=== PATIENT | male | born 1955 | race Caucasian/White ===

== ENCOUNTER → 2017-04-02 | Outpatient (CLI) | payer OTHER ==
[~2017-04-02] MED LIST: FLOM5CAP PO; PERCOCET PO
[2017-04-02 10:43] LABS: ANION GAP 7 MEQ/L (8-16); BLOOD UREA NITROGEN 14 MG/DL (7-18); CALCIUM LEVEL 9.9 MG/DL (8.8-10.2); CARBON DIOXIDE LEVEL 28 MEQ/L (21-32); CHLORIDE LEVEL 102 MEQ/L (98-107); CREATININE FOR GFR 1.27 MG/DL (0.70-1.30); GLOMERULAR FILTRATION RATE > 60.0 (>49); GLUCOSE, FASTING 182 MG/DL (80-110); POTASSIUM SERUM 4.3 MEQ/L (3.5-5.1); SODIUM LEVEL 137 MEQ/L (136-145)
== END ==
LOC: M WUC 08:11
PROVIDERS: ATTEND Family Medicine
DX: E13.29 Other specified diabetes mellitus with other diabetic kidney complication (principal)

== ENCOUNTER → 2017-11-05 | Outpatient (CLI) | payer OTHER ==
[2017-11-05 09:12] LABS: ESTIMATED AVERAGE GLUCOSE 217 MG/DL (60-110); HEMOGLOBIN A1c 9.2 %
[2017-11-05 09:21] LABS: ANION GAP 9 MEQ/L (8-16); BLOOD UREA NITROGEN 16 MG/DL (7-18); CALCIUM LEVEL 9.4 MG/DL (8.8-10.2); CARBON DIOXIDE LEVEL 26 MEQ/L (21-32); CHLORIDE LEVEL 104 MEQ/L (98-107); CREATININE FOR GFR 1.34 MG/DL (0.70-1.30); GLOMERULAR FILTRATION RATE 57.3 (>49); GLUCOSE, FASTING 240 MG/DL (70-100); POTASSIUM SERUM 5.1 MEQ/L (3.5-5.1); SODIUM LEVEL 139 MEQ/L (136-145)
== END ==
LOC: M WUC 08:12
DX: E13.29 Other specified diabetes mellitus with other diabetic kidney complication (principal)

== ENCOUNTER → 2018-02-07 | Outpatient (CLI) | payer OTHER ==
[2018-02-07 12:48] LABS: ALBUMIN 3.9 GM/DL (3.2-5.2); ALBUMIN/GLOBULIN RATIO 1.08 (1.00-1.93); ALKALINE PHOSPHATASE 57 U/L (45-117); ALT/SGPT 57 U/L (12-78); ANION GAP 7 MEQ/L (8-16); AST/SGOT 23 U/L (7-37); BILIRUBIN,TOTAL 0.5 MG/DL (0.2-1.0); BLOOD UREA NITROGEN 17 MG/DL (7-18); CALCIUM LEVEL 9.5 MG/DL (8.8-10.2); CARBON DIOXIDE LEVEL 26 MEQ/L (21-32); CHLORIDE LEVEL 104 MEQ/L (98-107); CHOLESTEROL LEVEL 175 MG/DL (<200); CHOLESTEROL RISK RATIO 4.729 (<5); CREATININE FOR GFR 1.31 MG/DL (0.70-1.30); GLOMERULAR FILTRATION RATE 58.6 (>49); GLUCOSE, FASTING 136 MG/DL (70-100); HDL CHOLESTEROL 37 MG/DL (>40); LDL CHOLESTEROL 111.2 MG/DL (<100); NON-HDL-C 138 MG/DL; POTASSIUM SERUM 4.5 MEQ/L (3.5-5.1); PSA SCREENING 1.26 NG/ML (< 4.0); SODIUM LEVEL 137 MEQ/L (136-145); TOTAL PROTEIN 7.5 GM/DL (6.4-8.2); TRIGLYCERIDES LEVEL 134 MG/DL (<150)
[2018-02-07 12:53] LABS: CREATININE, URINE 19.7 MG/DL; MALB URINE SIEMENS 11.7 MG/L; MAU/CREAT RATIO 59.3 MCG/MG (0.0-30.0)
[2018-02-07 13:01] LABS: ESTIMATED AVERAGE GLUCOSE 160 MG/DL (60-110); HEMOGLOBIN A1c 7.2 %
== END ==
LOC: M WUC 08:06
DX: E13.29 Other specified diabetes mellitus with other diabetic kidney complication (principal); Z13.29 Encounter for screening for other suspected endocrine disorder; Z12.5 Encounter for screening for malignant neoplasm of prostate; E78.2 Mixed hyperlipidemia
CPT/HCPCS: 80053

== ENCOUNTER → 2018-06-12 | Outpatient (CLI) | payer OTHER ==
[2018-06-12 13:49] LABS: ALBUMIN 4.1 GM/DL (3.2-5.2); ALBUMIN/GLOBULIN RATIO 1.21 (1.00-1.93); ALKALINE PHOSPHATASE 58 U/L (45-117); ALT/SGPT 49 U/L (12-78); ANION GAP 8 MEQ/L (8-16); AST/SGOT 17 U/L (7-37); BILIRUBIN,TOTAL 0.6 MG/DL (0.2-1.0); BLOOD UREA NITROGEN 17 MG/DL (7-18); CALCIUM LEVEL 9.7 MG/DL (8.8-10.2); CARBON DIOXIDE LEVEL 29 MEQ/L (21-32); CHLORIDE LEVEL 101 MEQ/L (98-107); CREATININE FOR GFR 1.13 MG/DL (0.70-1.30); GLOMERULAR FILTRATION RATE > 60.0 (>49); GLUCOSE, FASTING 146 MG/DL (70-100); POTASSIUM SERUM 4.9 MEQ/L (3.5-5.1); SODIUM LEVEL 138 MEQ/L (136-145); TOTAL PROTEIN 7.5 GM/DL (6.4-8.2)
[2018-06-12 17:24] LABS: ESTIMATED AVERAGE GLUCOSE 148 MG/DL (60-110); HEMOGLOBIN A1c 6.8 %
== END ==
LOC: M WUC 08:04
DX: E13.29 Other specified diabetes mellitus with other diabetic kidney complication (principal); E78.2 Mixed hyperlipidemia

== ENCOUNTER → 2018-10-08 | Outpatient (CLI) | payer OTHER ==
[~2018-10-08] MED LIST changes: +FLOM0.4C39 PO; -FLOM5CAP PO
[2018-10-08 12:52] LABS: ALBUMIN 3.3 GM/DL (3.2-5.2); BILIRUBIN,TOTAL 0.7 MG/DL (0.2-1.0); CHOLESTEROL RISK RATIO 4.026 (<5); CREATININE FOR GFR 1.31 MG/DL (0.70-1.30); GLOMERULAR FILTRATION RATE 58.6 (>49); POTASSIUM SERUM 4.3 MEQ/L (3.5-5.1); TOTAL PROTEIN 7.2 GM/DL (6.4-8.2)
== END ==
LOC: M WUC 08:09
PROVIDERS: ATTEND Family Medicine
DX: E78.2 Mixed hyperlipidemia (principal); E13.29 Other specified diabetes mellitus with other diabetic kidney complication

== ENCOUNTER → 2018-12-23 | Outpatient (CLI) | payer MEDICARE, OTHER ==
[2018-12-23 13:20] LABS: ALT/SGPT 48 U/L (12-78); BILIRUBIN,TOTAL 0.5 MG/DL (0.2-1.0); BLOOD UREA NITROGEN 15 MG/DL (7-18); CALCIUM LEVEL 9.1 MG/DL (8.8-10.2); CARBON DIOXIDE LEVEL 27 MEQ/L (21-32); CHLORIDE LEVEL 101 MEQ/L (98-107); CHOLESTEROL LEVEL 181 MG/DL (<200); CHOLESTEROL RISK RATIO 4.309 (<5); CREATININE FOR GFR 1.21 MG/DL (0.70-1.30); GLOMERULAR FILTRATION RATE > 60.0 (>49); GLUCOSE, FASTING 173 MG/DL (70-100); HDL CHOLESTEROL 42 MG/DL (>40); LDL CHOLESTEROL 108 MG/DL (<100); NON-HDL-C 139 MG/DL; POTASSIUM SERUM 4.3 MEQ/L (3.5-5.1); SODIUM LEVEL 136 MEQ/L (136-145); TOTAL PROTEIN 7.5 GM/DL (6.4-8.2); TRIGLYCERIDES LEVEL 154 MG/DL (<150)
[2018-12-23 14:28] LABS: MAU/CREAT RATIO 81.6 MCG/MG (0.0-30.0)
[2018-12-23 14:43] LABS: HEMOGLOBIN A1c 7.6 %
== END ==
LOC: M WUC 08:28
PROVIDERS: ATTEND Family Medicine
DX: E13.29 Other specified diabetes mellitus with other diabetic kidney complication (principal); Z12.5 Encounter for screening for malignant neoplasm of prostate
CPT/HCPCS: 36415; 80053; 80061; 82043; 83036; G0103

== ENCOUNTER → 2019-06-30 | Outpatient (CLI) | payer OTHER, MEDICARE ==
[2019-06-30 09:44] LABS: HEMOGLOBIN A1c 7.8 %
[2019-06-30 09:54] LABS: CALCIUM LEVEL 9.5 MG/DL (8.8-10.2); CREATININE FOR GFR 1.41 MG/DL (0.70-1.30); GLOMERULAR FILTRATION RATE 53.7 (>49); POTASSIUM SERUM 4.6 MEQ/L (3.5-5.1)
== END ==
LOC: M WUC 08:09
PROVIDERS: ATTEND Family Medicine
DX: E13.29 Other specified diabetes mellitus with other diabetic kidney complication (principal)

== ENCOUNTER → 2019-07-21 | Outpatient (CLI) | payer MEDICARE, OTHER ==
--- NOTE | 2019-07-21 08:43 | REP ---
Clinical: Lung screening. History smoking. Comparison: None Technique: Axial low-dose noncontrast images from the thoracic inlet to the upper abdomen using lung screening technique. Findings: COPD/emphysematous changes are appreciated. There is a 1.9 cm area of opacity in the anterior right middle lobe with small adjacent satellite nodules measuring 1-2 mm as well as few scattered bilateral nonspecific and primarily non solid densities (right greater than left). Tracheobronchial tree is patent. No effusion. No pneumothorax. Impression: Lung-RADS category IV-B. PET/CT and short-term follow-up CT examination are suggested for further investigation. Electronically Signed by Brandon Hodgson MD 07/21/2019 08:34 A
== END ==
LOC: M RAD 07:44
PROVIDERS: ATTEND Family Medicine
DX: Z00.00 Encounter for general adult medical examination without abnormal findings (principal); F17.211 Nicotine dependence, cigarettes, in remission; R91.8 Other nonspecific abnormal finding of lung field

== ENCOUNTER → 2019-08-19 | Outpatient (CLI) | payer MEDICARE, OTHER ==
--- NOTE | 2019-08-20 10:19 | REP ---
PET/CT: HISTORY: Diagnosing lung carcinoma. 19 mm nodular density right middle lobe. COMPARISONS: Comparison CT study of the chest is from July 21, 2019. TECHNIQUE: 55 minutes following the intravenous injection of a 8.52 mCi dose of F-18 FDG, three-dimensional PET scintigraphy is acquired from the skull base to the proximal thighs. Triplanar noncontrast CT scanning is acquired through the same anatomic range for attenuation correction, and image registration with scan parameters optimized to minimize radiation exposure to the patient. PET scintigraphy and CT datasets were fused and displayed on a workstation with multiplanar and projection display capability. PET/CT FINDINGS: The previously noted nodular opacity in the anterior aspect of the right middle lobe has improved morphologically. It has a linear shaped and is smaller and thinner suggesting postinflammatory atelectasis or fibrosis. It is not hypermetabolic. There is no discernible FDP accumulation. Maximum standard uptake value is 0.5. There is no other abnormal hypermetabolic uptake within the thorax. No other abnormal opacity seen in the lung parenchyma. The head and neck soft tissues are unremarkable. In the abdomen and pelvis, there is no abnormal hypermetabolic uptake. Multifocal mild uptake in the subcutaneous fat layer of the anterior abdominal wall is seen consistent with recent subcutaneous injections. This should be correlated with clinical history. Maximum standard uptake value within these is 4.85. IMPRESSION: There is no abnormal hypermetabolic uptake within the chest. The nodular opacity seen on screening CT study is improved in appearance morphologically consistent with a benign inflammatory changes. Repeat screening CT study of the chest suggested 1 year. There are minimally hypermetabolic foci in the subcutaneous fat layer of the anterior abdominal wall, question recent subcutaneous injections. Electronically Signed by Tyrone Olmos MD 08/20/2019 11:17 A
== END ==
LOC: M PLARAD 14:35
PROVIDERS: ATTEND Family Medicine
DX: R91.8 Other nonspecific abnormal finding of lung field (principal)
CPT/HCPCS: 78815; A9552

== ENCOUNTER → 2019-10-04 | Outpatient (CLI) | payer MEDICARE, OTHER ==
[~2019-10-04] MED LIST changes: +ASPI81TA85 PO; +CINN500C15 PO; +CYAN100050 PO; +D 202000 PO; +EZET10TA21 PO; +GNP250TA9 PO; +JARD1TAB PO; +LOSA25TA14 PO; +METF-877 PO; +METF10004 PO
[2019-10-04 11:31] LABS: CALCIUM LEVEL 8.9 MG/DL (8.8-10.2); CREATININE FOR GFR 1.38 MG/DL (0.70-1.30); GLOMERULAR FILTRATION RATE 55.1 (>49); POTASSIUM SERUM 4.6 MEQ/L (3.5-5.1)
== END ==
LOC: M WUC 08:19
PROVIDERS: ATTEND Family Medicine
DX: E13.29 Other specified diabetes mellitus with other diabetic kidney complication (principal)

== ENCOUNTER 2019-10-17 10:17 | Day surgery (SDC) | payer MEDICARE, OTHER ==
[~2019-10-17] VITALS: Ht 190.5 cm; Wt 89.7 kg
[~2019-10-17 10:17] MED LIST changes: +NS 1,000 ML IV ONE
[2019-10-17] MEDS ORDERED: LIDOCAINE 2% INJ 100 MG/5 ML SDV (FOR ANES.) As Ordered ONE (11:58)
[2019-10-17] MEDS ORDERED: propofoL 500 MG/50 ML VIAL As Ordered ONE ×2 (11:58→12:13)
--- NOTE | 2019-10-17 12:40 | ROOR ---
Patient Name: Mitch Peck Procedure Date: 10/17/2019 11:52 AM Date of : 1955 Age: 63 Room: [facility] Gender: Male Note Status: Finalized Procedure: Colonoscopy Indications: High risk colon cancer surveillance: Personal history of colonic polyps Providers: London Gerard MD Referring MD: Alvaro Evans MD Requesting Provider: Medicines: Monitored Anesthesia Care Complications: No immediate complications. Procedure: Pre-Anesthesia Assessment: - Prior to the procedure, a History and Physical was performed, and patient medications and allergies were reviewed. The patient is competent. The risks and benefits of the procedure and the sedation options and risks were discussed with the patient. All questions were answered and informed consent was obtained. Patient identification and proposed procedure were verified by the physician, the nurse and the anesthesiologist in the procedure room. Mental Status Examination: alert and oriented. Airway Examination: normal oropharyngeal airway and neck mobility. Respiratory Examination: clear to auscultation. CV Examination: normal. Prophylactic Antibiotics: The patient does not require prophylactic antibiotics. Prior Anticoagulants: The patient has taken no previous anticoagulant or antiplatelet agents. ASA Grade Assessment: II - A patient with mild systemic disease. After reviewing the risks and benefits, the patient was deemed in satisfactory condition to undergo the procedure. The anesthesia plan was to use monitored anesthesia care (MAC). Immediately prior to administration of medications, the patient was re-assessed for adequacy to receive sedatives. The heart rate, respiratory rate, oxygen saturations, blood pressure, adequacy of pulmonary ventilation, and response to care were monitored throughout the procedure. The physical status of the patient was re-assessed after the procedure. The Colonoscope was introduced through the anus and advanced to the cecum, identified by appendiceal orifice and ileocecal valve. The colonoscopy was performed without difficulty. The patient tolerated the procedure well. The quality of the bowel preparation was good. The terminal ileum, ileocecal valve, appendiceal orifice, and rectum were photographed. Scope insertion time was 3 minutes. Scope withdrawal time was 12 minutes. The total duration of the procedure was 15 minutes. Findings: The perianal and digital rectal examinations were normal. The terminal ileum appeared normal. Two sessile polyps were found in the cecum. The polyps were 8 to 12 mm in size. These polyps were removed with a cold snare. Resection and retrieval were complete. Verification of patient identification for the specimen was done by the physician and nurse using the patient's name, date and medical record number. Estimated blood loss was minimal. For hemostasis, one hemostatic clip was successfully placed. There was no bleeding at the end of the procedure. A 15 mm polyp was found in the transverse colon. The polyp was flat and sessile. The polyp was removed with a hot snare. Resection and retrieval were complete. To close a defect after polypectomy, one hemostatic clip was successfully placed. There was no bleeding at the end of the procedure. Multiple small and large-mouthed diverticula were found from sigmoid to transverse colon. There was no evidence of diverticular bleeding. Non-bleeding external and internal hemorrhoids were found during retroflexion. The hemorrhoids were medium-sized. Impression: - The examined portion of the ileum was normal. - Two 8 to 12 mm polyps in the cecum, removed with a cold snare. Resected and retrieved. Clip was placed. - One 15 mm polyp in the transverse colon, removed with a hot snare. Resected and retrieved. Clip was placed. - Moderate diverticulosis from sigmoid to transverse colon. There was no evidence of diverticular bleeding. - Non-bleeding external and internal hemorrhoids. Recommendation: - Patient has a contact number available for emergencies. The signs and symptoms of potential delayed complications were discussed with the patient. Return to normal activities tomorrow. Written discharge instructions were provided to the patient. - High fiber diet. - Continue present medications. - Miralax 1 capful (17 grams) in 8 ounces of water PO daily for 3 days. - Await pathology results. - Repeat colonoscopy in 3 years for surveillance based on pathology results. - Telephone GI clinic for pathology results in 2 weeks. - Return to primary care physician. London Gerard MD London Gerard MD 10/17/2019 12:40:01 PM Electronically signed by London Gerard MD Number of Addenda: 0 Note Initiated On: 10/17/2019 11:52 AM Estimated Blood Loss: Estimated blood loss was minimal.
[2019-10-17 12:55] VITALS: BP 108/81
== END 2019-10-17 13:02 | disposition home or self-care (01) ==
LOC: M OPP 10:17
PROVIDERS: ATTEND Internal Medicine Gastroenterology
DX: Z12.11 Encounter for screening for malignant neoplasm of colon (principal); Z86.010 Personal history of colon polyps; Z80.0 Family history of malignant neoplasm of digestive organs; K64.8 Other hemorrhoids; K63.5 Polyp of colon; K57.30 Diverticulosis of large intestine without perforation or abscess without bleeding; Z79.82 Long term (current) use of aspirin; Z79.84 Long term (current) use of oral hypoglycemic drugs; Z79.899 Other long term (current) drug therapy; Z88.8 Allergy status to other drugs, medicaments and biological substances

== ENCOUNTER → 2020-04-02 | Outpatient (CLI) | payer MEDICARE, OTHER ==
[~2020-04-02] MED LIST changes: -ASPI81TA85 PO; +ASPI81TA86 PO; -NS 1,000 ML IV ONE
[2020-04-02 10:38] LABS: ALBUMIN 4.1 GM/DL (3.2-5.2); BILIRUBIN,TOTAL 0.6 MG/DL (0.2-1.0); CALCIUM LEVEL 9.4 MG/DL (8.8-10.2); CHOLESTEROL RISK RATIO 5.119 (<5); CREATININE FOR GFR 1.28 MG/DL (0.70-1.30); GLOMERULAR FILTRATION RATE 59.9 (>49); POTASSIUM SERUM 4.3 MEQ/L (3.5-5.1); TOTAL PROTEIN 7.8 GM/DL (6.4-8.2)
[2020-04-02 10:41] LABS: CREATININE, URINE 71.7 MG/DL; MALB URINE SIEMENS 56.3 MG/L; MAU/CREAT RATIO 78.5 MCG/MG (0.0-30.0)
== END ==
LOC: M WUC 08:03
PROVIDERS: ATTEND Family Medicine
DX: E78.2 Mixed hyperlipidemia (principal); E13.29 Other specified diabetes mellitus with other diabetic kidney complication; Z12.5 Encounter for screening for malignant neoplasm of prostate
CPT/HCPCS: 36415; 80053; 80061; 82043; 83036; G0103

== ENCOUNTER → 2020-06-26 | Outpatient (CLI) | payer MEDICARE, OTHER ==
[2020-06-26 12:55] LABS: BLOOD UREA NITROGEN 19 MG/DL (7-18); CALCIUM LEVEL 9.6 MG/DL (8.8-10.2); CARBON DIOXIDE LEVEL 29 MEQ/L (21-32); CHLORIDE LEVEL 102 MEQ/L (98-107); CREATININE FOR GFR 1.19 MG/DL (0.70-1.30); GLOMERULAR FILTRATION RATE > 60.0 (>49); GLUCOSE, FASTING 171 MG/DL (70-100); POTASSIUM SERUM 4.3 MEQ/L (3.5-5.1); SODIUM LEVEL 136 MEQ/L (136-145)
[2020-06-26 13:09] LABS: HEMOGLOBIN A1c 7.6 %
== END ==
LOC: M WUC 08:06
PROVIDERS: ATTEND Family Medicine
DX: E13.9 Other specified diabetes mellitus without complications (principal)

== ENCOUNTER → 2020-06-29 | Outpatient (CLI) | payer MEDICARE, OTHER ==
--- NOTE | 2020-07-05 14:34 | REP ---
CT CHEST WITHOUT CONTRAST HISTORY: Abnormal CT lung screening. COMPARISON: CT chest July 21, 2019. CT FINDINGS: The previously noted multifocal tree-in-bud inflammatory pulmonary opacities in the right middle lobe, right upper lobe, and left upper lobe have largely resolved. There is some minimal parenchymal scarring in the right middle lobe anteriorly and medially with scattered areas of mild peribronchial thickening and inspissated endobronchial secretions consistent with bronchitis. There is a 5 mm noncalcified opacity which is most likely endobronchial secretions in the right upper lobe on page 32. Question bronchiectasis. There is a perifissural nodule in the left upper lobe on page 56 of 116 in series 201 of todays study. This is unchanged. No pulmonary mass or new infiltrate is appreciated. There are scattered stable mediastinal lymph nodes, none pathologically enlarged. Vascular calcification is seen. Normal adrenal glands. The visualized upper abdominal structures are unremarkable. No bony destructive lesion is appreciated. Posttraumatic changes are noted in the right clavicle which appear to be old. IMPRESSION: Bronchitis/bronchiectasis changes with a postinflammatory fibrosis in the right middle lobe and right upper lobe. 5 mm right upper lobe nodule versus inspissated endobronchial secretions. Lung-RADS category 2 findings. Repeat screening study recommended in one year. MTDD
== END ==
LOC: M RAD 07:58
PROVIDERS: ATTEND Family Medicine
DX: R91.8 Other nonspecific abnormal finding of lung field (principal); J84.10 Pulmonary fibrosis, unspecified

== ENCOUNTER → 2020-10-28 | Outpatient (CLI) | payer MEDICARE, OTHER ==
[2020-10-28 10:44] LABS: BLOOD UREA NITROGEN 15 MG/DL (7-18); CALCIUM LEVEL 9.8 MG/DL (8.8-10.2); CARBON DIOXIDE LEVEL 25 MEQ/L (21-32); CHLORIDE LEVEL 103 MEQ/L (98-107); CREATININE FOR GFR 1.16 MG/DL (0.70-1.30); GLOMERULAR FILTRATION RATE > 60.0 (>49); GLUCOSE, FASTING 167 MG/DL (70-100); POTASSIUM SERUM 4.1 MEQ/L (3.5-5.1); SODIUM LEVEL 138 MEQ/L (136-145)
== END ==
LOC: M WUC 08:08
PROVIDERS: ATTEND Family Medicine
DX: E13.29 Other specified diabetes mellitus with other diabetic kidney complication (principal)

== ENCOUNTER → 2021-03-04 | Outpatient (CLI) | payer MEDICARE, OTHER ==
[2021-03-04 10:09] LABS: BLOOD UREA NITROGEN 13 MG/DL (7-18); CALCIUM LEVEL 9.1 MG/DL (8.8-10.2); CARBON DIOXIDE LEVEL 28 MEQ/L (21-32); CHLORIDE LEVEL 105 MEQ/L (98-107); CREATININE FOR GFR 1.17 MG/DL (0.70-1.30); GLOMERULAR FILTRATION RATE > 60.0 (>49); GLUCOSE, FASTING 132 MG/DL (70-100); POTASSIUM SERUM 4.2 MEQ/L (3.5-5.1); SODIUM LEVEL 138 MEQ/L (136-145)
[2021-03-04 11:18] LABS: HEMOGLOBIN A1c 6.9 %
== END ==
LOC: M WUC 08:10
PROVIDERS: ATTEND Family Medicine
DX: E13.29 Other specified diabetes mellitus with other diabetic kidney complication (principal)

== ENCOUNTER → 2021-08-30 | Outpatient (REF) | payer MEDICARE, OTHER ==
[2021-08-30 12:58] LABS: HEMOGLOBIN A1c 8.5 %
[2021-08-30 13:12] LABS: CREATININE, URINE 76.4 MG/DL; MALB URINE SIEMENS 64.4 MG/L; MAU/CREAT RATIO 84.2 MCG/MG (0.0-30.0)
[2021-08-30 13:15] LABS: ALBUMIN 3.7 GM/DL (3.2-5.2); ALT/SGPT 27 U/L (12-78); BLOOD UREA NITROGEN 20 MG/DL (7-18); CALCIUM LEVEL 9.4 MG/DL (8.8-10.2); CARBON DIOXIDE LEVEL 28 MEQ/L (21-32); CHLORIDE LEVEL 105 MEQ/L (98-107); CHOLESTEROL LEVEL 171 MG/DL (<200); CHOLESTEROL RISK RATIO 4.275 (<5); CREATININE FOR GFR 1.26 MG/DL (0.70-1.30); GLOMERULAR FILTRATION RATE > 60.0 (>49); GLUCOSE, FASTING 151 MG/DL (70-100); HDL CHOLESTEROL 40 MG/DL (>40); LDL CHOLESTEROL 107 MG/DL (<100); NON-HDL-C 131 MG/DL; POTASSIUM SERUM 4.5 MEQ/L (3.5-5.1); SODIUM LEVEL 138 MEQ/L (136-145); TOTAL PROTEIN 7.3 GM/DL (6.4-8.2); TRIGLYCERIDES LEVEL 119 MG/DL (<150)
== END ==
LOC: M SFHCADAM 08:05
PROVIDERS: ATTEND Family Medicine
DX: E13.29 Other specified diabetes mellitus with other diabetic kidney complication (principal); E78.2 Mixed hyperlipidemia; Z12.5 Encounter for screening for malignant neoplasm of prostate
CPT/HCPCS: 80053; 80061; 82043; 83036; G0103

== ENCOUNTER → 2021-11-03 | Outpatient (REF) | payer MEDICARE, OTHER ==
[~2021-11-03] MED LIST changes: +LOSA25TA13 PO; -LOSA25TA14 PO
[2021-11-03 11:29] LABS: CALCIUM LEVEL 9.8 MG/DL (8.8-10.2); CREATININE FOR GFR 1.38 MG/DL (0.70-1.30); GLOMERULAR FILTRATION RATE 54.7 (>49); POTASSIUM SERUM 4.7 MEQ/L (3.5-5.1)
[2021-11-03 12:57] LABS: HEMOGLOBIN A1c 9.2 %
== END ==
LOC: M SFHCADAM 09:01
PROVIDERS: ATTEND Family Medicine
DX: E13.29 Other specified diabetes mellitus with other diabetic kidney complication (principal)

== ENCOUNTER → 2021-11-09 | Outpatient (CLI) | payer MEDICARE, OTHER | LOC: M RAD 09:16 | PROVIDERS: ATTEND Family Medicine | DX: Z12.2 Encounter for screening for malignant neoplasm of respiratory organs (principal); F17.211 Nicotine dependence, cigarettes, in remission; R91.8 Other nonspecific abnormal finding of lung field ==

== ENCOUNTER → 2022-05-19 | Outpatient (CLI) | payer MEDICARE, OTHER ==
[2022-05-19 13:09] LABS: HEMOGLOBIN A1c 8.3 %
[2022-05-19 13:37] LABS: ALBUMIN 3.9 GM/DL (3.2-5.2); BILIRUBIN,TOTAL 0.7 MG/DL (0.2-1.0); CALCIUM LEVEL 9.2 MG/DL (8.8-10.2); CHOLESTEROL RISK RATIO 4.441 (<5); CREATININE FOR GFR 1.33 MG/DL (0.70-1.30); GLOMERULAR FILTRATION RATE 56.9 (>49); POTASSIUM SERUM 4.3 MEQ/L (3.5-5.1); TOTAL PROTEIN 7.4 GM/DL (6.4-8.2)
== END ==
LOC: M ADAMS 08:37
PROVIDERS: ATTEND Family Medicine
DX: E13.29 Other specified diabetes mellitus with other diabetic kidney complication (principal); E78.2 Mixed hyperlipidemia

== ENCOUNTER → 2022-11-08 | Outpatient (CLI) | payer MEDICARE, OTHER ==
[2022-11-08 10:42] LABS: HEMATOCRIT 52.4 % (42.0-52.0); HEMOGLOBIN 17.5 g/dl (13.5-17.5); MEAN CORPUSCULAR HEMOGLOBIN 31.5 pg (27.0-33.0); MEAN CORPUSCULAR HGB CONC 33.4 g/dl (32.0-36.5); MEAN CORPUSCULAR VOLUME 94.2 fl (80.0-96.0); PLATELET COUNT, AUTOMATED 293 10^3/uL (150-450); RED BLOOD COUNT 5.56 10^6/uL (4.30-6.10); WHITE BLOOD COUNT 9.3 10^3/uL (4.0-10.0)
[2022-11-08 11:22] LABS: CREATININE, URINE 65.6 MG/DL
[2022-11-08 11:23] LABS: MAU/CREAT RATIO 57.9 MCG/MG (0.0-30.0)
[2022-11-08 12:28] LABS: HEMOGLOBIN A1c 9.1 % (4.0-6.0)
[2022-11-08 14:49] LABS: ALBUMIN 3.9 G/DL (3.2-5.2); BILIRUBIN,TOTAL 0.7 MG/DL (0.3-1.2); CALCIUM LEVEL 9.6 MG/DL (8.3-10.6); CHOLESTEROL RISK RATIO 4.36 (<5); CREATININE FOR GFR 1.31 MG/DL (0.70-1.30); GLOMERULAR FILTRATION RATE 57.9 (>49); POTASSIUM SERUM 4.5 MMOL/L (3.5-5.1)
[2022-11-08 22:09] LABS: LDL CHOLESTEROL 127.6 MG/DL (<100); TOTAL PROTEIN 7.3 G/DL (5.7-8.2)
== END ==
LOC: M WUC 08:03
PROVIDERS: ATTEND Family Medicine
DX: R91.8 Other nonspecific abnormal finding of lung field (principal); E78.2 Mixed hyperlipidemia; E13.29 Other specified diabetes mellitus with other diabetic kidney complication; Z12.5 Encounter for screening for malignant neoplasm of prostate
CPT/HCPCS: 36415; 80053; 80061; 82043; 83036; 85027; G0103

== ENCOUNTER 2022-11-15 17:56 | Inpatient (IN) | payer MEDICARE, OTHER ==
[~2022-11-15] VITALS: Ht 190.5 cm; Wt 93.0 kg
[2022-11-15] MEDS ORDERED: TRUL0.5I (18:17)
[2022-11-15] MEDS ORDERED: methylPREDNISolone 125MG 2ML VIAL IV ONE (19:55)
[2022-11-15] MEDS ORDERED: LIDOCAINE 5% (LIDODERM) PATCH TD ONE (21:35)
[2022-11-15 21:37] LABS: BASO # 0.1 10^3/uL (0.0-0.2); BASO % 0.5 % (0.0-1.0); EOS # 0.3 10^3/uL (0.0-0.5); EOS % 2.2 % (0.0-3.0); HEMATOCRIT 52.2 % (42.0-52.0); HEMOGLOBIN 17.5 g/dl (13.5-17.5); LYMPH # 3.5 10^3/uL (1.5-5.0); LYMPH % 26.3 % (24.0-44.0); MEAN CORPUSCULAR HEMOGLOBIN 31.2 pg (27.0-33.0); MEAN CORPUSCULAR HGB CONC 33.5 g/dl (32.0-36.5); MONO # 1.1 10^3/uL (0.0-0.8); NEUTROPHILS # 8.3 10^3/uL (1.5-8.5); NEUTROPHILS % 62.8 % (36.0-66.0); PLATELET COUNT, AUTOMATED 289 10^3/uL (150-450); RED BLOOD COUNT 5.61 10^6/uL (4.30-6.10); WHITE BLOOD COUNT 13.2 10^3/uL (4.0-10.0)
[2022-11-15 21:43] LABS: ERYTHROCYTE SEDIMENTATION RATE 34 mm/hr (0-20)
[2022-11-15 21:53] LABS: BLOOD UREA NITROGEN 21 MG/DL (9-23); CALCIUM LEVEL 9.8 MG/DL (8.3-10.6); CARBON DIOXIDE LEVEL 28 MMOL/L (20-31); CHLORIDE LEVEL 106 MMOL/L (98-107); CREATININE FOR GFR 1.16 MG/DL (0.70-1.30); GLOMERULAR FILTRATION RATE > 60.0 (>49); GLUCOSE, FASTING 159 MG/DL (74-106); POTASSIUM SERUM 4.5 MMOL/L (3.5-5.1); SODIUM LEVEL 140 MMOL/L (136-145)
[2022-11-15 22:28] LABS: C REACTIVE PROTEIN QUANTITATIV < 0.40 MG/DL (<1.0)
[2022-11-15] MEDS ORDERED: ONDANSETRON 4MG 2ML VIAL IV ONE (22:40)
[2022-11-15] MEDS ORDERED: MORPHINE 4 MG/ML 1ML VIAL IV ONE (22:40)
[2022-11-15] MEDS ORDERED: DEXTROSE 50% 50ML SYRINGE IV PRN (22:55)
[2022-11-15] MEDS ORDERED: MORPHINE 2 MG/ML 1ML VIAL IV PRN (22:55)
[2022-11-15] MEDS ORDERED: NS 1,000 ML IV ONE (22:55)
[2022-11-15] MEDS ORDERED: GLUCAGON INJ 1MG VIAL SC PRN (22:55)
[2022-11-15] MEDS ORDERED: ACETAMINOPHEN TAB 650MG DOSE (2X325MG) PO PRN (22:55)
[2022-11-15] MEDS ORDERED: GLUCOSE 4GM CHEW TABLET PO PRN (22:55)
[2022-11-15] MEDS ORDERED: ONDANSETRON 4MG 2ML VIAL IV PRN (22:55)
[2022-11-15 23:37] LABS: RSV AMPLIFICATION NEGATIVE (NEGATIVE)
[2022-11-16] MEDS: INSULIN LISPRO (NovoLOG) PER UNIT SC SCH ×3 (00:14→12:00)
[2022-11-16] MEDS ORDERED: VITA100093 PO (00:23)
[2022-11-16] MEDS ORDERED: DULA4.5P SC (00:23)
[2022-11-16] MEDS ORDERED: ASPI-161 PO (00:23)
[2022-11-16] MEDS ORDERED: JARD1TAB3 PO (00:23)
[2022-11-16] MEDS ORDERED: HOME MED LIST COMPLETE! XX SCH (00:25)
[2022-11-16] MEDS ORDERED: carisoprodoL 350 MG TAB PO PRN (00:45)
[2022-11-16 06:51] LABS: HEMATOCRIT 50.1 % (42.0-52.0); HEMOGLOBIN 16.9 g/dl (13.5-17.5); MEAN CORPUSCULAR HEMOGLOBIN 31.5 pg (27.0-33.0); MEAN CORPUSCULAR HGB CONC 33.7 g/dl (32.0-36.5); MEAN CORPUSCULAR VOLUME 93.5 fl (80.0-96.0); PLATELET COUNT, AUTOMATED 259 10^3/uL (150-450); RED BLOOD COUNT 5.36 10^6/uL (4.30-6.10); WHITE BLOOD COUNT 11.1 10^3/uL (4.0-10.0)
[2022-11-16 07:17] LABS: INR 0.93; PROTHROMBIN TIME 12.7 SECONDS (12.5-14.5)
[2022-11-16 07:18] LABS: PARTIAL THROMBOPLASTIN TIME 25.7 SECONDS (24.8-34.2)
[2022-11-16 07:27] LABS: HEMOGLOBIN A1c 9.1 % (4.0-6.0)
[2022-11-16 07:46] LABS: ALBUMIN 3.7 G/DL (3.2-5.2); ALKALINE PHOSPHATASE 71 U/L (46-116); ALT/SGPT 33 U/L (7.0-40); AST/SGOT 13 U/L (<34); BILIRUBIN,TOTAL 0.8 MG/DL (0.3-1.2); BLOOD UREA NITROGEN 24 MG/DL (9-23); CALCIUM LEVEL 9.6 MG/DL (8.3-10.6); CARBON DIOXIDE LEVEL 22 MMOL/L (20-31); CHLORIDE LEVEL 107 MMOL/L (98-107); CREATININE FOR GFR 1.11 MG/DL (0.70-1.30); GLOMERULAR FILTRATION RATE > 60.0 (>49); GLUCOSE, FASTING 214 MG/DL (74-106); MAGNESIUM LEVEL 2.1 MG/DL (1.8-2.4); POTASSIUM SERUM 4.8 MMOL/L (3.5-5.1); SODIUM LEVEL 139 MMOL/L (136-145); TOTAL PROTEIN 6.9 G/DL (5.7-8.2)
[2022-11-16] MEDS ORDERED: KETOROLAC 30 MG/ML 1ML VIAL IV ONE (08:55)
[2022-11-16] MEDS ORDERED: EZETIMIBE 10MG TABLET (ZETIA) PO SCH (09:00)
[2022-11-16] MEDS ORDERED: LIDOCAINE 5% OINT 30GM TUBE TOP SCH (09:00)
[2022-11-16] MEDS ORDERED: LOSARTAN 25 MG TAB PO SCH (09:00)
[2022-11-16] MEDS ORDERED: CYANOCOBALAMIN 500 MCG TAB PO SCH (09:00)
[2022-11-16] MEDS ORDERED: ASPIRIN 81MG ENTERIC TABLET PO SCH (09:00)
[2022-11-16] MEDS ORDERED: VITAMIN D 1,000 INTERNATIONAL UNITS TABLET PO SCH (09:00)
[2022-11-16] MEDS ORDERED: ACETAMINOPHEN 500 MG TAB PO SCH (09:00)
[2022-11-16] MEDS ORDERED: PROHANCE 279.3MG/ML 15ML VIAL As Ordered ONE (10:26)
[2022-11-16] MEDS ORDERED: PROHANCE 279.3MG/ML 5ML VIAL As Ordered ONE (10:26)
[2022-11-16 11:29] VITALS: BP 118/59
[2022-11-16] MEDS ORDERED: methylPREDNISolone 40MG 1ML VIAL IV ONE (13:20)
[2022-11-16] MEDS ORDERED: MEDR4PAK PO (13:25)
[2022-11-16] MEDS ORDERED: ACET500P3 PO (13:25)
[2022-11-16] MEDS ORDERED: IBUP-1022 PO (13:25)
[2022-11-16] MEDS ORDERED: OMEP40CA4 PO (13:25)
[2022-11-16] MEDS ORDERED: NAPROXEN 250 MG TAB PO SCH (14:00)
== END 2022-11-16 14:25 | disposition home or self-care (01) | DRG 558 ==
LOC: M ED 17:56 → M ED INP 22:51
PROVIDERS: ADMIT Internal Medicine; ATTEND Internal Medicine Nephrology
DX: M65.9 Synovitis and tenosynovitis, unspecified (principal); E11.618 Type 2 diabetes mellitus with other diabetic arthropathy; M75.32 Calcific tendinitis of left shoulder; I10 Essential (primary) hypertension; M75.00 Adhesive capsulitis of unspecified shoulder; E78.5 Hyperlipidemia, unspecified; Z88.8 Allergy status to other drugs, medicaments and biological substances; Z79.899 Other long term (current) drug therapy; Z79.82 Long term (current) use of aspirin; Z87.891 Personal history of nicotine dependence; S40.012A Contusion of left shoulder, initial encounter; W18.30XA Fall on same level, unspecified, initial encounter; Y92.009 Unspecified place in unspecified non-institutional (private) residence as the place of occurrence of the external cause

== ENCOUNTER → 2022-11-17 | Outpatient (CLI) | payer MEDICARE, OTHER ==
[~2022-11-17] MED LIST changes: +ACET500P3 PO; +ASPI-161 PO; +DULA4.5P SC; +IBUP-1022 PO; +ISOVUE-370 76% 100ML VIAL As Ordered ONE; +JARD1TAB3 PO; +MEDR4PAK PO; +OMEP40CA4 PO; +TRUL0.5I; +VITA100093 PO
== END ==
LOC: M RAD 08:39
PROVIDERS: ATTEND Family Medicine
DX: R91.8 Other nonspecific abnormal finding of lung field (principal)
CPT/HCPCS: 71260; Q9967

== ENCOUNTER → 2023-02-05 | Outpatient (REF) | payer MEDICARE, OTHER ==
[~2023-02-05] MED LIST changes: -ISOVUE-370 76% 100ML VIAL As Ordered ONE
[2023-02-05 13:46] LABS: HEMOGLOBIN A1c 8.5 % (4.0-6.0)
[2023-02-05 14:01] LABS: CALCIUM LEVEL 9.7 MG/DL (8.3-10.6); CREATININE FOR GFR 1.28 MG/DL (0.70-1.30); GLOMERULAR FILTRATION RATE 59.3 (>49); POTASSIUM SERUM 5.4 MMOL/L (3.5-5.1)
== END ==
LOC: M SFHCADAM 07:33
PROVIDERS: ATTEND Family Medicine
DX: E11.65 Type 2 diabetes mellitus with hyperglycemia (principal)

== ENCOUNTER → 2023-05-01 | Outpatient (REF) | payer MEDICARE, OTHER ==
[~2023-05-01] MED LIST changes: +CYAN-1 PO; -CYAN100050 PO
[2023-05-01 14:22] LABS: BLOOD UREA NITROGEN 17 MG/DL (9-23); CALCIUM LEVEL 9.8 MG/DL (8.3-10.6); CARBON DIOXIDE LEVEL 26 MMOL/L (20-31); CHLORIDE LEVEL 104 MMOL/L (98-107); CREATININE FOR GFR 1.17 MG/DL (0.70-1.30); GLOMERULAR FILTRATION RATE > 60.0 (>49); GLUCOSE, FASTING 161 MG/DL (74-106); POTASSIUM SERUM 4.6 MMOL/L (3.5-5.1); SODIUM LEVEL 138 MMOL/L (136-145)
[2023-05-01 14:33] LABS: HEMOGLOBIN A1c 8.2 % (4.0-6.0)
== END ==
LOC: M SFHCADAM 08:31
PROVIDERS: ATTEND Family Medicine
DX: E11.65 Type 2 diabetes mellitus with hyperglycemia (principal)

== ENCOUNTER → 2023-12-13 | Outpatient (CLI) | payer MEDICARE, OTHER ==
[~2023-12-13] MED LIST changes: -ASPI-161 PO; +ASPI-615 PO
== END ==
LOC: M RAD 07:17
PROVIDERS: ATTEND Family Medicine
DX: Z87.891 Personal history of nicotine dependence (principal)

== ENCOUNTER → 2023-12-24 | Outpatient (CLI) | payer MEDICARE, OTHER ==
[2023-12-24 12:21] LABS: HEMATOCRIT 54.2 % (42.0-52.0); HEMOGLOBIN 17.7 g/dl (13.5-17.5); MEAN CORPUSCULAR HGB CONC 32.7 g/dl (32.0-36.5); MEAN CORPUSCULAR VOLUME 94.9 fl (80.0-96.0); PLATELET COUNT, AUTOMATED 276 10^3/uL (150-450); RED BLOOD COUNT 5.71 10^6/uL (4.30-6.10); WHITE BLOOD COUNT 10.5 10^3/uL (4.0-10.0)
[2023-12-24 12:33] LABS: ALBUMIN 4.2 G/DL (3.2-5.2); BILIRUBIN,TOTAL 0.7 MG/DL (0.3-1.2); CALCIUM LEVEL 9.8 MG/DL (8.3-10.6); CHOLESTEROL RISK RATIO 4.14 (<5); CREATININE FOR GFR 1.31 MG/DL (0.70-1.30); FREE T4 1.24 NG/DL (0.89-1.76); GLOMERULAR FILTRATION RATE 57.8 (>49); HDL CHOLESTEROL 47.1 MG/DL (>40); LDL CHOLESTEROL 117.1 MG/DL (<100); NON-HDL-C 147.9 MG/DL; POTASSIUM SERUM 4.8 MMOL/L (3.5-5.1); THYROID STIMULATING HORMONE 2.127 uIU/ML (0.55-4.78); TOTAL PROTEIN 7.4 G/DL (5.7-8.2)
== END ==
LOC: M WUC 08:08
PROVIDERS: ATTEND Family Medicine
DX: E13.29 Other specified diabetes mellitus with other diabetic kidney complication (principal); E78.2 Mixed hyperlipidemia

== ENCOUNTER → 2023-12-27 | Outpatient (REF) | payer MEDICARE, OTHER ==
[2023-12-27 15:02] LABS: HEMOGLOBIN A1c 9.2 % (4.0-6.0)
== END ==
LOC: M SFHCADAM 08:39
PROVIDERS: ATTEND Family Medicine
DX: E13.29 Other specified diabetes mellitus with other diabetic kidney complication (principal)

== ENCOUNTER → 2024-02-11 | Outpatient (CLI) | payer MEDICARE, OTHER ==
[2024-02-11 11:06] LABS: HEMOGLOBIN A1c 8.4 % (4.0-6.0)
== END ==
LOC: M WUC 08:05
PROVIDERS: ATTEND Family Medicine
DX: E13.29 Other specified diabetes mellitus with other diabetic kidney complication (principal)

== ENCOUNTER → 2024-04-02 | Outpatient (REF) | payer MEDICARE, OTHER ==
[2024-04-02 14:49] LABS: BLOOD UREA NITROGEN 18 MG/DL (9-23); CARBON DIOXIDE LEVEL 26 MMOL/L (20-31); CHLORIDE LEVEL 104 MMOL/L (98-107); CREATININE FOR GFR 1.25 MG/DL (0.70-1.30); GLOMERULAR FILTRATION RATE > 60.0 (>42); GLUCOSE, FASTING 245 MG/DL (74-106); MAGNESIUM LEVEL 2.3 MG/DL (1.8-2.4); POTASSIUM SERUM 4.7 MMOL/L (3.5-5.1); SODIUM LEVEL 137 MMOL/L (136-145)
== END ==
LOC: M SFHCADAM 09:08
PROVIDERS: ATTEND Physician Assistant
DX: E11.65 Type 2 diabetes mellitus with hyperglycemia (principal); Z79.4 Long term (current) use of insulin; N18.4 Chronic kidney disease, stage 4 (severe); R42 Dizziness and giddiness

== ENCOUNTER → 2024-07-18 | Outpatient (CLI) | payer MEDICARE, OTHER ==
[2024-07-18 10:46] LABS: HEMATOCRIT 53.6 % (42.0-52.0); HEMOGLOBIN 17.5 g/dl (13.5-17.5); MEAN CORPUSCULAR HGB CONC 32.6 g/dl (32.0-36.5); PLATELET COUNT, AUTOMATED 274 10^3/uL (150-450); RED BLOOD COUNT 5.64 10^6/uL (4.30-6.10); WHITE BLOOD COUNT 10.6 10^3/uL (4.0-10.0)
[2024-07-18 11:12] LABS: CREATININE, URINE 97.2 MG/DL
[2024-07-18 11:13] LABS: ALBUMIN 3.4 G/DL (3.2-5.2); BILIRUBIN,TOTAL 0.9 MG/DL (0.3-1.2); CALCIUM LEVEL 9.8 MG/DL (8.3-10.6); CHOLESTEROL RISK RATIO 3.5 (<5); CREATININE FOR GFR 1.35 MG/DL (0.70-1.30); GLOMERULAR FILTRATION RATE 55.6 (>42); HDL CHOLESTEROL 50.2 MG/DL (>40); LDL CHOLESTEROL 103.4 MG/DL (<100); MAU/CREAT RATIO 55.5 MCG/MG (0.0-30.0); NON-HDL-C 125.8 MG/DL; POTASSIUM SERUM 4.4 MMOL/L (3.5-5.1); PSA SCREENING 1.25 NG/ML (< 4.00); TOTAL PROTEIN 7.4 G/DL (5.7-8.2)
[2024-07-18 11:57] LABS: HEMOGLOBIN A1c 8.9 % (4.0-6.0)
== END ==
LOC: M WUC 08:04
PROVIDERS: ATTEND Family Medicine
DX: E78.2 Mixed hyperlipidemia (principal); E13.29 Other specified diabetes mellitus with other diabetic kidney complication; Z12.5 Encounter for screening for malignant neoplasm of prostate; I25.10 Atherosclerotic heart disease of native coronary artery without angina pectoris
CPT/HCPCS: 36415; 80053; 80061; 82043; 83036; 85027; G0103

== ENCOUNTER → 2024-11-12 | Outpatient (REF) | payer MEDICARE, OTHER ==
[2024-11-12 14:25] LABS: BLOOD UREA NITROGEN 18 MG/DL (9-23); CALCIUM LEVEL 9.9 MG/DL (8.3-10.6); CARBON DIOXIDE LEVEL 27 MMOL/L (20-31); CHLORIDE LEVEL 105 MMOL/L (98-107); CREATININE FOR GFR 1.05 MG/DL (0.70-1.30); GLOMERULAR FILTRATION RATE > 60.0 (>42); GLUCOSE, FASTING 208 MG/DL (74-106); POTASSIUM SERUM 5.2 MMOL/L (3.5-5.1); SODIUM LEVEL 141 MMOL/L (136-145)
[2024-11-12 14:35] LABS: HEMOGLOBIN A1c 8.5 % (4.0-6.0)
== END ==
LOC: M SFHCADAM 08:08
PROVIDERS: ATTEND Family Medicine
DX: E11.65 Type 2 diabetes mellitus with hyperglycemia (principal); Z28.21 Immunization not carried out because of patient refusal

== ENCOUNTER → 2024-12-29 | Outpatient (CLI) | payer MEDICARE, OTHER ==
[~2024-12-29] MED LIST changes: +JANU100T PO
[2024-12-29 09:27] LABS: BLOOD UREA NITROGEN 19 MG/DL (9-23); CALCIUM LEVEL 9.5 MG/DL (8.3-10.6); CARBON DIOXIDE LEVEL 27 MMOL/L (20-31); CHLORIDE LEVEL 103 MMOL/L (98-107); CREATININE FOR GFR 1.07 MG/DL (0.70-1.30); GLOMERULAR FILTRATION RATE > 60.0 (>42); GLUCOSE, FASTING 289 MG/DL (74-106); POTASSIUM SERUM 4.3 MMOL/L (3.5-5.1); SODIUM LEVEL 140 MMOL/L (136-145)
== END ==
LOC: M EKG 08:11
PROVIDERS: ATTEND Anesthesiology
DX: Z01.818 Encounter for other preprocedural examination (principal)

== ENCOUNTER 2025-01-02 06:11 | Day surgery (SDC) | payer MEDICARE, OTHER ==
[~2025-01-02] VITALS: Ht 190.5 cm; Wt 85.7 kg
[2025-01-02] MEDS: LR 1,000 ML IV SCH (07:02)
[2025-01-02] MEDS ORDERED: SUGAMMADEX SODIUM 500 MG/5 ML VIAL (BRIDION) As Ordered ONE (07:09)
[2025-01-02] MEDS ORDERED: fentaNYL 250 MCG/5 ML INJECTION As Ordered ONE (07:09)
[2025-01-02] MEDS ORDERED: LIDOCAINE 2% 100MG/5ML SDV (FOR ANES.) As Ordered ONE (07:09)
[2025-01-02] MEDS ORDERED: MIDAZOLAM INJ 2MG/2ML VIAL As Ordered ONE (07:09)
[2025-01-02] MEDS ORDERED: ROCURONIUM BROMIDE 50MG/5ML VIAL As Ordered ONE (07:09)
[2025-01-02] MEDS ORDERED: propofoL 200 MG/20 ML VIAL As Ordered ONE (07:10)
[2025-01-02] MEDS ORDERED: ONDANSETRON 4MG 2ML VIAL As Ordered ONE (07:10)
[2025-01-02] MEDS ORDERED: KETOROLAC 30 MG/ML 1ML VIAL As Ordered ONE (07:10)
[2025-01-02] MEDS ORDERED: ACETAMINOPHEN 1000MG/100ML IV BAG As Ordered ONE (07:10)
[2025-01-02] MEDS ORDERED: DEXTROSE 50% 50ML SYRINGE IV PRN (07:20)
[2025-01-02] MEDS: INSULIN LISPRO (NovoLOG) PER UNIT SC PRN ×2 (07:28→09:54)
[2025-01-02] MEDS: ceFAZolin SOD 2 GM IV ONCE IV ONE (07:52)
[2025-01-02] MEDS ORDERED: LABETALOL 100MG/20ML VIAL As Ordered ONE (08:22)
[2025-01-02] MEDS ORDERED: METOCLOPRAMIDE INJ 10MG/2ML VIAL As Ordered ONE (08:30)
[2025-01-02] MEDS ORDERED: PHENYLephrine 500MCG 5ML (100MCG/ML) SYRINGE As Ordered ONE (08:51)
[2025-01-02] MEDS ORDERED: oxyCODONE 5MG TAB PO PRN (09:45)
[2025-01-02] MEDS ORDERED: ONDANSETRON 4MG 2ML VIAL IV PRN (09:45)
[2025-01-02] MEDS ORDERED: HYDROMORPHONE HCL 0.5 MG/ 0.5 ML SYRINGE IV PRN (09:45)
[2025-01-02] MEDS ORDERED: fentaNYL 100 MCG/2 ML INJECTION IV PRN (09:45)
[2025-01-02 11:41] VITALS: BP 131/68; TEMP 97.1; O2SAT 98
[2025-01-02] MEDS ORDERED: NS (Normal Saline) 0.9% 1,000 ML IV SCH (15:05)
[2025-01-02] MEDS ORDERED: traMADol 50 MG TAB PO PRN (15:05)
[2025-01-02] MEDS ORDERED: KETOROLAC 30 MG/ML 1ML VIAL IV SCH (19:00)
== END 2025-01-02 11:41 | disposition home or self-care (01) ==
LOC: M SDC 06:11
PROVIDERS: ATTEND Surgery
DX: K40.20 Bilateral inguinal hernia, without obstruction or gangrene, not specified as recurrent (principal); I10 Essential (primary) hypertension; E11.9 Type 2 diabetes mellitus without complications; E78.5 Hyperlipidemia, unspecified; Z79.82 Long term (current) use of aspirin; Z79.84 Long term (current) use of oral hypoglycemic drugs; Z79.899 Other long term (current) drug therapy; Z88.8 Allergy status to other drugs, medicaments and biological substances
CPT/HCPCS: 49650; C1781; J0131; J0665; J0690; J1815; J1885; J1920; J2250; J2371; J2405; J2765; J3010; S2900

== ENCOUNTER 2025-03-24 07:51 | Day surgery (SDC) | payer MEDICARE, OTHER ==
[~2025-03-24] VITALS: Ht 190.5 cm; Wt 81.9 kg
[~2025-03-24 07:51] MED LIST changes: -FLOM0.4C39 PO; +TAMS-18 PO
[2025-03-24 09:59] VITALS: TEMP 97
[2025-03-24 10:12] VITALS: BP 127/62; O2SAT 96
== END 2025-03-24 10:21 | disposition home or self-care (01) ==
LOC: M OPP 07:51
PROVIDERS: ATTEND Surgery
DX: Z12.11 Encounter for screening for malignant neoplasm of colon (principal); K57.30 Diverticulosis of large intestine without perforation or abscess without bleeding; Z88.8 Allergy status to other drugs, medicaments and biological substances; Z79.82 Long term (current) use of aspirin; Z79.84 Long term (current) use of oral hypoglycemic drugs; Z79.85 Long-term (current) use of injectable non-insulin antidiabetic drugs; Z79.899 Other long term (current) drug therapy

== ENCOUNTER → 2025-09-08 | Outpatient (REF) | payer MEDICARE, OTHER ==
[~2025-09-08] MED LIST changes: -EZET10TA21 PO; +EZET10TA57 PO; -IBUP-1022 PO; +IBUP600T42 PO
[2025-09-08 14:07] LABS: PLATELET COUNT, AUTOMATED 278 10^3/uL (150-450)
[2025-09-08 14:11] LABS: PSA SCREENING 1.29 NG/ML (< 4.00)
[2025-09-08 14:12] LABS: ALT/SGPT 56.0 U/L (7.0-40); AST/SGOT 25.0 U/L (<34); CALCIUM LEVEL 9.2 MG/DL (8.3-10.6); CARBON DIOXIDE LEVEL 28.0 MMOL/L (20-31); CHLORIDE LEVEL 104.0 MMOL/L (98-107); CHOLESTEROL LEVEL 184.0 MG/DL (<200); CHOLESTEROL RISK RATIO 4.19 (<5); CREATININE FOR GFR 1.17 MG/DL (0.70-1.30); GLOMERULAR FILTRATION RATE 66.7 (>42); LDL CHOLESTEROL 117.9 MG/DL (<100); NON-HDL-C 140.1 MG/DL; POTASSIUM SERUM 4.5 MMOL/L (3.5-5.1); SODIUM LEVEL 138.0 MMOL/L (136-145); TRIGLYCERIDES LEVEL 111.0 MG/DL (<150)
[2025-09-08 14:40] LABS: CREATININE, URINE 52.1 MG/DL; MALB URINE SIEMENS 40.0 MG/L; MAU/CREAT RATIO 76.7 MCG/MG (0.0-30.0)
[2025-09-08 15:12] LABS: ESTIMATED AVERAGE GLUCOSE 177.0 MG/DL (60-110)
== END ==
LOC: M SFHCADAM 08:07
PROVIDERS: ATTEND Family Medicine
DX: E13.29 Other specified diabetes mellitus with other diabetic kidney complication (principal); N18.31 Chronic kidney disease, stage 3a; K76.0 Fatty (change of) liver, not elsewhere classified; Z12.5 Encounter for screening for malignant neoplasm of prostate; E78.2 Mixed hyperlipidemia
CPT/HCPCS: 80053; 80061; 82043; 83036; 85027; G0103